=== PATIENT | female | born 1990 | race Caucasian/White ===

== ENCOUNTER 2018-07-21 15:00 | Inpatient (IN) | payer OTHER ==
[~2018-07-21] VITALS: Ht 167.6 cm; Wt 61.2 kg
[2018-07-21 15:12] VITALS: BP 102/61
[2018-07-21] MEDS ORDERED: NKM (15:15)
--- NOTE | 2018-07-21 15:35 | NUR ---
ED Nurse Note: presents from home with c/o rlq abd pain and decreased appetite. no n/v tolerates iv start and lab draw well
--- NOTE | 2018-07-21 15:44 | NUR ---
ED Nurse Note: Collected blood and urine then sent to lab.
[2018-07-21] MEDS ORDERED: Isovue-300 100ml vial INJ PRN (15:45)
[2018-07-21 15:53] LABS: APPEARANCE,URINE CLEAR; BILIRUBIN, URINE NEGATIVE (NEGATIVE); GLUCOSE, URINE (UA) NEGATIVE (NEGATIVE); KETONES,URINE 1+ (NEGATIVE); LEUKOCYTE ESTERASE ,URINE 1+ (NEGATIVE); NITRITE,URINE NEGATIVE (NEGATIVE); PH,URINE 6.5 (4.5-8.0); PROTEIN,URINE NEGATIVE (NEGATIVE); UROBILINOGEN,URINE NORMAL MG/DL (0.0-1.0)
[2018-07-21 15:54] LABS: COLOR,URINE YELLOW
[2018-07-21 15:56] LABS: BASOPHILS % (AUTO) 0.4 % (0.0-2.0); EOSINOPHILS % (AUTO) 2.4 % (0.0-3.0); HEMATOCRIT 35.5 % (37.0-47.0); LYMPHOCYTES % (AUTO) 12.5 % (20.0-45.0); MEAN CORPUSCULAR VOLUME 91 FL (80-99); MONOCYTES % (AUTO) 7.7 % (1.0-10.0); PLATELET COUNT 286 K/UL (150-450); RED BLOOD COUNT 3.88 M/UL (4.20-5.40); RED CELL DISTRIBUTION WIDTH 11.5 % (11.6-14.8); WHITE BLOOD COUNT 13.9 K/UL (4.8-10.8)
[2018-07-21 16:11] LABS: ANION GAP 10 mmol/L (5-15); BLOOD UREA NITROGEN 10 mg/dL (7-18); CALCIUM 9.1 MG/DL (8.5-10.1); CARBON DIOXIDE 27 MMOL/L (21-32); CHLORIDE 103 MMOL/L (98-107); CREATININE 0.8 MG/DL (0.55-1.30); POTASSIUM 3.8 MMOL/L (3.5-5.1); SODIUM 139 MMOL/L (136-145)
[2018-07-21 16:16] LABS: ALANINE AMINOTRANSFERASE 27 U/L (12-78); ALKALINE PHOSPHATASE 52 U/L (46-116); ASPARTATE AMINO TRANSFERASE 16 U/L (15-37); BILIRUBIN,TOTAL 0.6 MG/DL (0.2-1.0)
[2018-07-21 17:00] VITALS: BP 110/72
--- NOTE | 2018-07-21 17:01 | NUR ---
ED Nurse Note: Called CT for ff up with procedure.
--- NOTE | 2018-07-21 17:41 | NUR ---
ED Nurse Note: Pt taken to CT via gurney and consent signed.
--- NOTE | 2018-07-21 17:55 | NUR ---
ED Nurse Note: PT CAME BACK FROM CT AND STABLE.
--- NOTE | 2018-07-21 18:08 | Diagnostic Imaging Report ---
Indication: Abdominal pain Technique: Continuous helical transaxial imaging of the abdomen and pelvis was obtained from the lung bases to the pubic symphysis during intravenous contrast administration. Coronal 2-D reformats were also obtained. Study obtained in a Siemens sensation [address] Automatic Exposure Control was utilized. Total Dose length Product (DLP): 666.[address] Dose Index Volume (CTDIvol): 12.77 mGy Comparison: None Findings: Mild basilar atelectasis demonstrated. The liver and spleen, pancreas, gallbladder, kidneys and adrenal glands are unremarkable. Bowel gas pattern is nonobstructive. There is a 14 mm thick blind-ending structure consistent with an inflamed enlarged appendix, midline in location within the lower abdomen and pelvis (59-60, series 3). The cecum is mobile and deviated toward the midline of the abdomen. Findings consistent with acute appendicitis. There is no abscess. Small amount of free fluid noted within the cul-de-sac. There is a 4 cm left ovarian cyst. Uterus is noted. Bladder is unremarkable. IMPRESSION: Acute appendicitis. No abscess identified. Note: The position of the appendix is somewhat unusual. The cecum is elongated and mobile and is deviated toward the mid section of the lower abdomen. As such, the appendix is midline just above the bladder dome. The CT scanner at [facility] is accredited by the [employer] and the scans are performed using dose optimization techniques as appropriate to a performed exam including Automatic Exposure control.
--- NOTE | 2018-07-21 18:44 | NUR ---
ED Nurse Note: PT/PTT AND TYPING/SCREENING SPECIMEN SENT.
[2018-07-21 18:46] VITALS: BP 115/77
--- NOTE | 2018-07-21 18:47 | NUR ---
ED Nurse Note: PT IS AWARE OF HOSPITAL ADMISSION.
--- NOTE | 2018-07-21 19:11 | NUR ---
HAND-OFF: Report given to nolan REILLY.
--- NOTE | 2018-07-21 19:12 | NUR ---
ED Nurse Note: report received from MELBA Mayer. Pt to be admitted for appendicitis. Pt A/Ox4, significant other at bedside. Pt showing no signs of acute distress. VSS.
[2018-07-21] MEDS ORDERED: Piperacillin/Tazobactam 3.375 GM in NS 110 ML IVPB ONE (19:15)
[2018-07-21] MEDS ORDERED: Morphine Sulfate 2mg/ml Inj(IV/IM USE ONLY) IVP PRN ×4 (19:30→22:00)
--- NOTE | 2018-07-21 20:29 | NUR ---
ED Nurse Note: Dr. Casanova @ bedside assessing pt.
--- NOTE | 2018-07-21 20:54 | NUR ---
ED Nurse Note: Pt transferred to Med/Chas floor, report given to MELBA Agudelo. Pt transferred to floor by engraving supervisor. All belongings taken with pt along with belongings list. IV site patent and asymptomatic, VSS. Pt showing no signs of acute distress.
[2018-07-21] MEDS ORDERED: D5NS 1,000 ML IV SCH (21:00)
--- NOTE | 2018-07-21 21:01 | Emergency Room Report ---
History of Present Illness General Chief Complaint: Abdominal Pain Source: Patient Present Illness HPI 28-year-old female presents ED for evaluation. Complaining of abdominal pain since yesterday. Pain is dull, 8 out of 10, localized to right lower quadrant, nonradiating. Notes poor appetite and nausea. Denies fevers. Denies diarrhea. Denies sick contacts or recent travel. No other aggravating relieving factors. Denies any other associated symptoms Allergies: Coded Allergies: No Known Allergies (Unverified , 07/21/18) Patient History Past Medical History: none Past Surgical History: none Pertinent Family History: none Social History: Denies: smoking, alcohol use, drug use Last Menstrual Period: 06/14/18 Now: No Immunizations: UTD Reviewed Nursing Documentation: PMH: Agreed; PSxH: Agreed Nursing Documentation-PMH Past Medical History: No Stated History Review of Systems All Other Systems: negative except mentioned in HPI Physical Exam Vital Signs Date Time Temp Pulse Resp B/P (MAP) Pulse Ox O2 Delivery O2 Flow Rate FiO2 07/21/18 15:12 98.8 16 102/61 98 Room Air 07/21/18 15:12 86 Sp02 EP Interpretation: reviewed, normal General Appearance: no apparent distress, alert, GCS 15, non-toxic Head: normocephalic, atraumatic Eyes: bilateral eye normal inspection, bilateral eye PERRL ENT: hearing grossly normal, normal pharynx, no angioedema, normal voice Neck: full range of motion, supple/symm/no masses Respiratory: chest non-tender, lungs clear, normal breath sounds, speaking full sentences Cardiovascular #1: regular rate, rhythm, no edema Cardiovascular #2: 2+ carotid (R), 2+ carotid (L), 2+ radial (R), 2+ radial (L) , 2+ dorsalis pedis (R), 2+ dorsalis pedis (L) Gastrointestinal: normal bowel sounds, soft, non-distended, no guarding, no rebound, tenderness - RLQ Rectal: deferred Genitourinary: normal inspection, no CVA tenderness Musculoskeletal: back normal, gait/station normal, normal range of motion, non- tender Neurologic: alert, oriented x3, responsive, motor strength/tone normal, sensory intact, speech normal Psychiatric: judgement/insight normal, memory normal, mood/affect normal, no suicidal/homicidal ideation Reflexes: 3+ bicep (R), 3+ bicep (L), 3+ tricep (R), 3+ tricep (L), 3+ knee (R) , 3+ knee (L) Skin: normal color, no rash, warm/dry, well hydrated Lymphatic: no adenopathy Medical Decision Making Diagnostic Impression: Primary Impression: Appendicitis Qualified Codes: K35.80 - Unspecified acute appendicitis ER Course Hospital Course 28-year-old F presents to ED with RLQ pain with anorexia Differential diagnoses include: Appendicitis, cholecystitis, small bowel obstruction Clinical course Patient placed on stretcher. monitor and storage bin tender. After initial history and physical I ordered labs, IV fluids, UA, and CT scan Labs - leukocytosis noted, Hb/Hct stable. electrolytes ok. UA unremarkable CT abdomen and pelvis - appendicits without abscess or rupture Antibiotics given. Dr Casanova at bedside; he agrees to assessment and will take patient to OR in the morning patient will be admitted to Dr Diaz I feel this is a highly complex case requiring extensive working including EKG/ Rhythm strip, Xray/CT/US, Blood/urine lab work, repeat exams while in ED, and administration of strong opiates/narcotics for pain control, admission to hospital or close patient follow up. Diagnosis - appendicitis Patient admitted in serious condition Labs Test 07/21/18 15:20 07/21/18 15:35 07/21/18 18:39 Urine Color Yellow Urine Appearance Clear Urine pH 6.5 (4.5-8.0) Urine Specific [place] 1.010 (1.005-1.035) Urine Protein Negative (NEGATIVE) Urine Glucose (UA) Negative (NEGATIVE) Urine Ketones 1+ (NEGATIVE) Urine Blood 3+ (NEGATIVE) Urine Nitrite Negative (NEGATIVE) Urine Bilirubin Negative (NEGATIVE) Urine Urobilinogen Normal MG/DL (0.0-1.0) Urine Leukocyte Esterase 1+ (NEGATIVE) Urine RBC 5-10 /HPF (0 - 2) Urine WBC 2-4 /HPF (0 - 2) Urine Squamous Epithelial Cells Few /LPF (NONE/OCC) Urine Amorphous Sediment Few /LPF (NONE) Urine Bacteria Few /HPF (NONE) Urine HCG, Qualitative Negative (NEGATIVE) White Blood Count 13.9 K/UL (4.8-10.8) Red Blood Count 3.88 M/UL (4.20-5.40) Hemoglobin 12.0 G/DL (12.0-16.0) Hematocrit 35.5 % (37.0-47.0) Mean Corpuscular Volume 91 FL (80-99) Mean Corpuscular Hemoglobin 31.0 PG (27.0-31.0) Mean Corpuscular Hemoglobin Concent 33.9 G/DL (32.0-36.0) Red Cell Distribution Width 11.5 % (11.6-14.8) Platelet Count 286 K/UL (150-450) Mean Platelet Volume 7.2 FL (6.5-10.1) Neutrophils (%) (Auto) 77.0 % (45.0-75.0) Lymphocytes (%) (Auto) 12.5 % (20.0-45.0) Monocytes (%) (Auto) 7.7 % (1.0-10.0) Eosinophils (%) (Auto) 2.4 % (0.0-3.0) Basophils (%) (Auto) 0.4 % (0.0-2.0) Sodium Level 139 MMOL/L (136-145) Potassium Level 3.8 MMOL/L (3.5-5.1) Chloride Level 103 MMOL/L (98-107) Carbon Dioxide Level 27 MMOL/L (21-32) Anion Gap 10 mmol/L (5-15) Blood Urea Nitrogen 10 mg/dL (7-18) Creatinine 0.8 MG/DL (0.55-1.30) Estimat Glomerular Filtration Rate > 60 mL/min (>60) Glucose Level 111 MG/DL (74-106) Calcium Level 9.1 MG/DL (8.5-10.1) Total Bilirubin 0.6 MG/DL (0.2-1.0) Aspartate Amino Transf (AST/SGOT) 16 U/L (15-37) Alanine Aminotransferase (ALT/SGPT) 27 U/L (12-78) Alkaline Phosphatase 52 U/L (46-116) Total Protein 7.9 G/DL (6.4-8.2) Albumin 4.0 G/DL (3.4-5.0) Globulin 3.9 g/dL Albumin/Globulin Ratio 1.0 (1.0-2.7) Lipase 160 U/L (73-393) Prothrombin Time 10.8 SEC (9.30-11.50) Prothromb Time International Ratio 1.0 (0.9-1.1) Activated Partial Thromboplast Time 31 SEC (23-33) CT/MRI/US Diagnostic Results CT/MRI/US Diagnostic Results : Imaging Test Ordered: CT A/P Impression appendicitis. no abscess or free air Last Vital Signs Date Time Temp Pulse Resp B/P (MAP) Pulse Ox O2 Delivery O2 Flow Rate FiO2 07/21/18 18:46 98.7 69 16 115/77 99 Room Air Status: improved Disposition: ADMITTED INPATIENT Condition: Serious Referrals: NOT CHOSEN IPA/,REFERRING (PCP) Rico Collazo MD July 21, 2018 21:01
--- NOTE | 2018-07-21 21:24 | Pre-Procedure Note/Attestation ---
Pre-Procedure Note/Attestation Complete Prior to Procedure Procedure Narrative: laparoscopic appendectomy possible open Indications for Procedure Pre-Operative Diagnosis: acute appendicitis Attestation I attest that I discussed the nature of the procedure; its benefits; risks and complications; and alternatives (and the risks and benefits of such alternatives ), prior to the procedure, with the patient (or the patient's legal sales representative metals). I attest that, if there was a reasonable possibility of needing a blood transfusion, the patient (or the patient's legal sales representative metals) was given the [facility] standardized written summary, pursuant to the Alirio Syd Blood Safety Act ([place] Health and Safety Code # 1645, as amended). I attest that I re-evaluated the patient just prior to the surgery and that there has been no change in the patient's H&P, except as documented below: Hunter Casanova July 21, 2018 21:24
--- NOTE | 2018-07-21 21:27 | Consultation ---
History of Present Illness General Date patient seen: July 21, 2018 Reason for Hospitalization: Abdominal Pain Present Illness HPI This is a very pleasant 28 year old female otherwise healthy who presented with acute abdominal pain starting yesterday. States pain cramping 6-8/10 lower abdominal pain that is now radiating to the RLQ. no n/v. subjective fevers. normal BM. decreased appetite. In ED noted to have leukocytosis and CT scan consistent with acute appendicitis. surgery called to evaluate. patient seen, chart reviewed, patient examined. Allergies: Coded Allergies: No Known Allergies (Unverified , 07/21/18) Medication History Scheduled No Known Medications* (NKM - No Known Medications*), 0 ., (Reported) Patient History History Provided By: Patient, Medical Record Healthcare decision maker Resuscitation status Advanced Directive on File Past Medical/Surgical History Past Medical/Surgical History: (1) Appendicitis Review of Systems Review of Symptoms General ROS: no weight loss or fever Psychological ROS: no depression or mood changes, no memory loss Ophthalmic ROS: no visual changes or eye irritation ENT ROS: no nasal congestion, hearing loss, dizziness Allergy and Immunology ROS: no allergic symptoms or urticaria Hematological and Lymphatic ROS: no swollen glands, unusual bleeding or bruising Endocrine ROS: no polyuria, polydipsia, weight changes, temperature intolerance Respiratory ROS: no cough, shortness of breath, or wheezing Cardiovascular ROS: no chest pain or dyspnea on exertion Gastrointestinal ROS: abdominal pain, no bright red blood in stool. Musculoskeletal ROS: no myalgias or arthralgias Neurological ROS: no TIA or stroke symptoms Dermatological ROS: no new or changing skin lesions, rashes or pruritis Physical Exam Physical Exam General appearance: alert, cooperative, no distress, appears stated age Head: Normocephalic, without obvious abnormality, atraumatic Eyes: conjunctivae/corneas clear. PERRL, EOM's intact. Fundi benign Throat: Lips, mucosa, and tongue normal. Teeth and gums normal Neck: supple, symmetrical, trachea midline, no adenopathy, thyroid: not enlarged, symmetric, no tenderness/mass/nodules, no carotid bruit and no JVD Lungs: clear to auscultation bilaterally Heart: regular rate and rhythm, S1, S2 normal, no murmur, click, rub or gallop Abdomen: soft, RLQ tender with rebound . Bowel sounds normal. No masses, no organomegaly Extremities: extremities normal, atraumatic, no cyanosis or edema Pulses: 2+ and symmetric Skin: Skin color, texture, turgor normal. No rashes or lesions Neurologic: Grossly normal Last 24 Hour Vital Signs Date Time Temp Pulse Resp B/P (MAP) Pulse Ox O2 Delivery O2 Flow Rate FiO2 07/21/18 20:54 98.6 76 16 121/61 99 Room Air 07/21/18 18:46 98.7 69 16 115/77 99 Room Air 07/21/18 17:00 98.5 77 19 110/72 97 Room Air 07/21/18 15:31 86 16 Room Air 07/21/18 15:12 98.8 86 16 98 Room Air 07/21/18 15:12 98.8 16 102/61 98 Room Air Laboratory Tests Test 07/21/18 15:20 07/21/18 15:35 07/21/18 18:39 Urine Color Yellow Urine Appearance Clear Urine pH 6.5 (4.5-8.0) Urine Specific [place] 1.010 (1.005-1.035) Urine Protein Negative (NEGATIVE) Urine Glucose (UA) Negative (NEGATIVE) Urine Ketones 1+ (NEGATIVE) H Urine Blood 3+ (NEGATIVE) H Urine Nitrite Negative (NEGATIVE) Urine Bilirubin Negative (NEGATIVE) Urine Urobilinogen Normal MG/DL (0.0-1.0) Urine Leukocyte Esterase 1+ (NEGATIVE) H Urine RBC 5-10 /HPF (0 - 2) H Urine WBC 2-4 /HPF (0 - 2) Urine Squamous Epithelial Cells Few /LPF (NONE/OCC) Urine Amorphous Sediment Few /LPF (NONE) H Urine Bacteria Few /HPF (NONE) Urine HCG, Qualitative Negative (NEGATIVE) White Blood Count 13.9 K/UL (4.8-10.8) H Red Blood Count 3.88 M/UL (4.20-5.40) L Hemoglobin 12.0 G/DL (12.0-16.0) Hematocrit 35.5 % (37.0-47.0) L Mean Corpuscular Volume 91 FL (80-99) Mean Corpuscular Hemoglobin 31.0 PG (27.0-31.0) Mean Corpuscular Hemoglobin Concent 33.9 G/DL (32.0-36.0) Red Cell Distribution Width 11.5 % (11.6-14.8) L Platelet Count 286 K/UL (150-450) Mean Platelet Volume 7.2 FL (6.5-10.1) Neutrophils (%) (Auto) 77.0 % (45.0-75.0) H Lymphocytes (%) (Auto) 12.5 % (20.0-45.0) L Monocytes (%) (Auto) 7.7 % (1.0-10.0) Eosinophils (%) (Auto) 2.4 % (0.0-3.0) Basophils (%) (Auto) 0.4 % (0.0-2.0) Sodium Level 139 MMOL/L (136-145) Potassium Level 3.8 MMOL/L (3.5-5.1) Chloride Level 103 MMOL/L (98-107) Carbon Dioxide Level 27 MMOL/L (21-32) Anion Gap 10 mmol/L (5-15) Blood Urea Nitrogen 10 mg/dL (7-18) Creatinine 0.8 MG/DL (0.55-1.30) Estimat Glomerular Filtration Rate > 60 mL/min (>60) Glucose Level 111 MG/DL (74-106) H Calcium Level 9.1 MG/DL (8.5-10.1) Total Bilirubin 0.6 MG/DL (0.2-1.0) Aspartate Amino Transf (AST/SGOT) 16 U/L (15-37) Alanine Aminotransferase (ALT/SGPT) 27 U/L (12-78) Alkaline Phosphatase 52 U/L (46-116) Total Protein 7.9 G/DL (6.4-8.2) Albumin 4.0 G/DL (3.4-5.0) Globulin 3.9 g/dL Albumin/Globulin Ratio 1.0 (1.0-2.7) Lipase 160 U/L (73-393) Prothrombin Time 10.8 SEC (9.30-11.50) Prothromb Time International Ratio 1.0 (0.9-1.1) Activated Partial Thromboplast Time 31 SEC (23-33) Height (Feet): 5 Height (Inches): 6.00 Weight (Pounds): 135 Medications Current Medications Medications (Trade) Dose Ordered Sig/Baljinder Route PRN Reason Start Time Stop Time Status Last Admin Dose Admin Acetaminophen (Tylenol) 650 mg Q4H PRN ORAL Mild Pain (Pain Scale 1-3) 07/21/18 19:30 08/20/18 19:29 Barium Sulfate (Readi-Cat 2) 450 ml NOW PRN ORAL Radiology Procedure 07/21/18 15:45 07/23/18 15:31 Dextrose (Dextrose 50%) 25 ml Q30M PRN IV Hypoglycemia 07/21/18 19:30 08/20/18 19:29 Dextrose (Dextrose 50%) 50 ml Q30M PRN IV Hypoglycemia 07/21/18 19:30 08/20/18 19:29 Dextrose/Sodium Chloride 1,000 ml @ 50 mls/hr Q20H IV 07/21/18 21:00 08/20/18 20:59 Iopamidol (Isovue-300 100ml) 100 ml NOW PRN INJ Radiology Procedure 07/21/18 15:45 Morphine Sulfate (Morphine Sulfate) 1 mg Q4H PRN IVP For Pain 07/21/18 19:30 07/28/18 19:29 Ondansetron HCl (Zofran) 4 mg Q6H PRN IVP Nausea & Vomiting 07/21/18 19:30 08/20/18 19:29 Piperacillin Sod/ Tazobactam Sod 3.375 gm/Sodium Chloride 110 ml @ 27.5 mls/hr EVERY 8 HOURS IVPB 07/22/18 06:00 07/29/18 05:59 Assessment/Plan Problem List: (1) Appendicitis Assessment & Plan: 28 year old female with acute appendicitis. febrile, HD stable, leukocytosis 13k. CT consistent with acute uncomplicated appendicitis. NPO p MN IV fluids IV Abx Consent To OR in AM for lap vs open appendectomy thank you ICD Codes: K37 - Unspecified appendicitis SNOMED: [id number] Qualifiers: Qualified Codes: K35.80 - Unspecified acute appendicitis Hunter Casanova July 21, 2018 21:27
[2018-07-21] MEDS: D5NS 1,000 ML IV SCH (21:29)
--- NOTE | 2018-07-21 21:53 | NUR ---
NURSE NOTES: Received patient from ER, via gurney, significant other is by bedside,patient is alert, oriented, able to make her needs known, ambulatory with steady gate. NPO post midnight due to laparoscopic appendectomy. Call light within reach, bed is in lowest position, locked and alarm is on. Will continue to monitor for safety and comfort.
[2018-07-21] MEDS ORDERED: Morphine Sulfate 4mg/ml Inj (IV USE ONLY) IVP PRN (22:00)
[2018-07-21] MEDS ORDERED: Milk of Magnesia 30ml Ud ORAL PRN (22:00)
[2018-07-21] MEDS ORDERED: Zolpidem 5mg tab ORAL PRN (22:00)
[2018-07-21] MEDS ORDERED: LORazepam 1mg tab ORAL PRN (22:00)
[2018-07-22] VITALS (11 sets, daily range): BP systolic 97–106; BP diastolic 46–58
[2018-07-22] MEDS ORDERED: Piperacillin/Tazobactam 3.375 GM in NS 110 ML IVPB SCH ×2
[2018-07-22] MEDS: Zoysn 3.37gm in NS 100ML IVPB SCH ×2 (05:47→13:32)
[2018-07-22 06:24] LABS: BASOPHILS % (AUTO) 0.4 % (0.0-2.0); EOSINOPHILS % (AUTO) 4.6 % (0.0-3.0); HEMATOCRIT 30.5 % (37.0-47.0); HEMOGLOBIN 10.2 G/DL (12.0-16.0); LYMPHOCYTES % (AUTO) 22.1 % (20.0-45.0); MEAN CORPUSCULAR VOLUME 92 FL (80-99); NEUTROPHILS % (AUTO) 64.9 % (45.0-75.0); PLATELET COUNT 239 K/UL (150-450); RED BLOOD COUNT 3.32 M/UL (4.20-5.40); RED CELL DISTRIBUTION WIDTH 11.5 % (11.6-14.8); WHITE BLOOD COUNT 9.6 K/UL (4.8-10.8)
[2018-07-22 06:37] LABS: ANION GAP 9 mmol/L (5-15); CALCIUM 8.6 MG/DL (8.5-10.1); CARBON DIOXIDE 26 MMOL/L (21-32); CHLORIDE 105 MMOL/L (98-107); CREATININE 0.7 MG/DL (0.55-1.30); POTASSIUM 4.2 MMOL/L (3.5-5.1); SODIUM 140 MMOL/L (136-145)
[2018-07-22 06:45] LABS: BLOOD UREA NITROGEN 9 mg/dL (7-18)
--- NOTE | 2018-07-22 07:20 | NUR ---
HAND-OFF: Report given to Brianna REILLY.
[2018-07-22] MEDS: D5NS 1,000 ML IV SCH (07:25)
--- NOTE | 2018-07-22 07:32 | NUR ---
NURSE NOTES: AWAKE/ALERT. NO C/O PAIN. NPO MAINTANINED FOR SURGERY. IN NO DISTRESS.
--- NOTE | 2018-07-22 08:00 | History and Physical Report ---
DATE OF ADMISSION: 07/21/2018 REASON FOR ADMISSION: 1. Abdominal pain. 2. Acute appendicitis. HISTORY OF PRESENT ILLNESS: The patient is a pleasant 28-year-old female who presented to the emergency room for further evaluation and care of abdominal pain. No acute nausea, vomiting, or diarrhea. When imaging of her abdomen and pelvis demonstrated acute appendicitis with no abscess. The patient is in no overt acute distress and General Surgery has been consulted for further evaluation and care. ALLERGIES: No known allergies. PAST MEDICAL HISTORY: Pharyngeal abscess with incision and drainage. PAST SURGICAL HISTORY: Pharyngeal abscess with incision and drainage. FAMILY HISTORY: Noncontributory. REVIEW OF SYSTEMS: Neurologic: The patient denies headache, change in vision, syncope, or presyncopal episodes. Cardiovascular: No current chest pain or palpitations. Pulmonary: No difficulty breathing, cough, sputum. Gastrointestinal/Genitourinary: The patient was having abdominal pain with no acute nausea, vomiting, or diarrhea. Endocrinology: No night sweats, fevers, or chills. Musculoskeletal: The patient feeling weak, tired, and fatigue. LABORATORIES: Dated July 21, 2018, white cell count 13.9, hemoglobin 12, and platelet count 286,000. Sodium 139, potassium 3.8, creatinine 0.8. PT/INR 10.81 respectively. PHYSICAL EXAMINATION: VITAL SIGNS: Blood pressure 115/77, respiratory rate 16, pulse 69, temperature 98.7. GENERAL: The patient awake, alert, not in distress. HEENT: Extraocular muscles intact. No lymphadenopathy noted. CARDIOVASCULAR: S1, S2. No rubs or gallops. PULMONARY: Clear to auscultation bilaterally. No rales, rhonchi, or wheezes. ABDOMINAL: Soft and nontender. EXTREMITIES: No edema. ASSESSMENT AND PLAN: 1. Abdominal pain secondary to acute appendicitis. Please refer to #2. 2. Acute appendicitis. At this time, the patient will be initiated on Zosyn 3.375 g every 6 hours intravenously. She will also be placed on the clear liquid diet and NPO. General surgeon consulted for appendectomy in the morning. 3. DVT prophylaxis with SCDs. 4. Dehydration. At this time, we will continue D5 normal saline with hydration over the next 24 hours. Hair Diaz MD DR: Ashley JOB#: [id number] CC:
[2018-07-22] MEDS ORDERED: Bupivacaine w/Epi 0.25% 30ml Vial INJ ONE (08:54)
[2018-07-22] MEDS ORDERED: fentaNYL 100 mcg/2 mL IV ONE (08:57)
[2018-07-22] MEDS ORDERED: Midazolam 2mg/2ml Inj ONE (08:57)
[2018-07-22] MEDS ORDERED: Propofol 200mg/20ml IV ONE (08:58)
[2018-07-22] MEDS ORDERED: Lidocaine 1% MPF 10mg/ml 5ml ONE (08:58)
[2018-07-22] MEDS ORDERED: Ketorolac 30mg Inj ONE (08:58)
[2018-07-22] MEDS ORDERED: Zemuron 50mg/5ml Inj IV ONE (09:05)
[2018-07-22] MEDS ORDERED: cefOXitin 1gm Inj ONE (09:05)
[2018-07-22] MEDS ORDERED: Succinylcholine 20mg/ml 10ml vial ONE (09:05)
--- NOTE | 2018-07-22 09:06 | NUR ---
NURSE NOTES: NPO MAINTAINED FOR SURGERY. TO OR VIA BED.
[2018-07-22] MEDS ORDERED: LR 1000ml ONE (09:12)
[2018-07-22] MEDS ORDERED: NS Irrig 1000ml ONE (09:12)
[2018-07-22] MEDS ORDERED: Sterile Water Irrig 1000ml IRRIG ONE (09:12)
[2018-07-22] MEDS ORDERED: Glycopyrrolate 0.2mg/ml 1ml Vial ONE (09:12)
[2018-07-22] MEDS ORDERED: TransDerm Scop 1mg/72HR Patch TDERMAL ONE (09:19)
[2018-07-22] MEDS ORDERED: LR 1000ml 1,000 ML IVLG SCH (09:57)
--- NOTE | 2018-07-22 09:57 | Anethesia Preoperative Eval ---
Anesthesia Pre-op PMH/ROS General Date of Evaluation: July 22, 2018 Time of Evaluation: 09:05 Anesthesiologist: Abbie ASA Score: ASA 1 Mallampati Score Class I : Soft palate, uvula, fauces, pillars visible Class II: Soft palate, uvula, fauces visible Class III: Soft palate, base of uvula visible Class IV: Only hard plate visible Mallampati Classification: Class II Surgeon: Sherry Diagnosis: Acute appendicitis Surgical Procedure: Lp appendectomy Anesthesia History: none Family History: no anesthesia problems Allergies: Coded Allergies: No Known Allergies (Unverified , 07/21/18) Medications: see eMAR Patient NPO?: Yes NPO Date: July 21, 2018 NPO Time: 0000 Past Medical History Cardiovascular: Denies: HTN, CAD, [place], valve dz, arrhythmia, other Pulmonary: Denies: asthma, COPD, [place], other Gastrointestinal/Genitourinary: Denies: GERD, CRI, ESRD, other Neurologic/Psychiatric: Denies: dementia, CVA, depression/anxiety, TIA, other Endocrine: Denies: DM, hypothyroidism, steroids, other HEENT: Denies: cataract (L), cataract (R), glaucoma, [place] (L), [place] (R), other Hematology/Immune: Denies: anemia, DVT, bleeding disorder, other Musculoskeletal/Integumentary: Denies: OA, RA, DJD, DDD, edema, other PMH Narrative: acutely ill admitted with abdominal pain. PSxH Narrative: Oral Sx Anesthesia Pre-op Phys. Exam Physician Exam Last Vital Signs Date Time Temp Pulse Resp B/P (MAP) Pulse Ox O2 Delivery O2 Flow Rate FiO2 07/22/18 08:00 98.3 62 18 100/52 (68) 100 07/22/18 08:00 Room Air Constitutional: NAD Neurologic: CN 2-12 intact Cardiovascular: RRR, no M/R/G Respiratory: CTA Gastrointestinal: other - some tenderness Airway Exam Mallampati Score: Class I MO: full Neck: flexible ROM: full Teeth: intact Dentures: no upper, no lower Anesthesia Pre-op A/P Labs Hematology Test 07/21/18 15:35 07/22/18 05:10 White Blood Count 13.9 K/UL (4.8-10.8) H 9.6 K/UL (4.8-10.8) Red Blood Count 3.88 M/UL (4.20-5.40) L 3.32 M/UL (4.20-5.40) L Hemoglobin 12.0 G/DL (12.0-16.0) 10.2 G/DL (12.0-16.0) L Hematocrit 35.5 % (37.0-47.0) L 30.5 % (37.0-47.0) L Mean Corpuscular Volume 91 FL (80-99) 92 FL (80-99) Mean Corpuscular Hemoglobin 31.0 PG (27.0-31.0) 30.8 PG (27.0-31.0) Mean Corpuscular Hemoglobin Concent 33.9 G/DL (32.0-36.0) 33.5 G/DL (32.0-36.0) Red Cell Distribution Width 11.5 % (11.6-14.8) L 11.5 % (11.6-14.8) L Platelet Count 286 K/UL (150-450) 239 K/UL (150-450) Mean Platelet Volume 7.2 FL (6.5-10.1) 7.5 FL (6.5-10.1) Neutrophils (%) (Auto) 77.0 % (45.0-75.0) H 64.9 % (45.0-75.0) Lymphocytes (%) (Auto) 12.5 % (20.0-45.0) L 22.1 % (20.0-45.0) Monocytes (%) (Auto) 7.7 % (1.0-10.0) 8.0 % (1.0-10.0) Eosinophils (%) (Auto) 2.4 % (0.0-3.0) 4.6 % (0.0-3.0) H Basophils (%) (Auto) 0.4 % (0.0-2.0) 0.4 % (0.0-2.0) Coagulation Test 07/21/18 18:39 Prothrombin Time 10.8 SEC (9.30-11.50) Prothromb Time International Ratio 1.0 (0.9-1.1) Activated Partial Thromboplast Time 31 SEC (23-33) Chemistry Test 07/21/18 15:35 07/22/18 05:10 Sodium Level 139 MMOL/L (136-145) 140 MMOL/L (136-145) Potassium Level 3.8 MMOL/L (3.5-5.1) 4.2 MMOL/L (3.5-5.1) Chloride Level 103 MMOL/L (98-107) 105 MMOL/L (98-107) Carbon Dioxide Level 27 MMOL/L (21-32) 26 MMOL/L (21-32) Anion Gap 10 mmol/L (5-15) 9 mmol/L (5-15) Blood Urea Nitrogen 10 mg/dL (7-18) 9 mg/dL (7-18) Creatinine 0.8 MG/DL (0.55-1.30) 0.7 MG/DL (0.55-1.30) Estimat Glomerular Filtration Rate > 60 mL/min (>60) > 60 mL/min (>60) Glucose Level 111 MG/DL (74-106) H 102 MG/DL (74-106) Calcium Level 9.1 MG/DL (8.5-10.1) 8.6 MG/DL (8.5-10.1) Total Bilirubin 0.6 MG/DL (0.2-1.0) Aspartate Amino Transf (AST/SGOT) 16 U/L (15-37) Alanine Aminotransferase (ALT/SGPT) 27 U/L (12-78) Alkaline Phosphatase 52 U/L (46-116) Total Protein 7.9 G/DL (6.4-8.2) Albumin 4.0 G/DL (3.4-5.0) Globulin 3.9 g/dL Albumin/Globulin Ratio 1.0 (1.0-2.7) Lipase 160 U/L (73-393) Urine Test Test 07/21/18 15:20 Urine HCG, Qualitative Negative (NEGATIVE) Risk Assessment & Plan Assessment: ASA 1E Plan: GA with ETT ponv prevention Status Change Before Surgery: No Pre-Antibiotics Drug: Cefoxitin 1gr. Given Within 1 Hr of Incision: Yes Time Given: 09:28 Junior Leiva MD July 22, 2018 09:57
[2018-07-22] MEDS ORDERED: Metoclopramide 10mg/2ml Inj IVP PRN (10:00)
[2018-07-22] MEDS ORDERED: DiphenhydrAMINE 50mg/ml Inj IVP PRN (10:00)
[2018-07-22] MEDS ORDERED: Meperidine 50mg/ml Inj(FOR RIGORS ONLY) IV PRN (10:00)
[2018-07-22] MEDS ORDERED: Ketorolac 30mg Inj IV PRN (10:00)
--- NOTE | 2018-07-22 10:25 | Brief Operative Note ---
Immediate Post Operative Note Operative Note Pre-op Diagnosis: acute appendicitis Procedure: lap appy Post-op Diagnosis: same as pre-op Surgeon: esme Anesthesiologist: marian Anesthesia: general, local Specimen: yes Complications: none Condition: stable Fluids: see records Estimated Blood Loss: minimal Drains: none Implant(s) used?: No Hunter Casanova July 22, 2018 10:25
--- NOTE | 2018-07-22 10:26 | Immediate Post-Op Evaluation ---
Immediate Post-Op Evalulation Immediate Post-Op Evalulation Procedure: Laparoscopic appendectomy Date of Evaluation: July 22, 2018 Time of Evaluation: 10:25 IV Fluids: 800 Blood Products: none Estimated Blood Loss: min Urinary Output: none Blood Pressure Systolic: 102 Blood Pressure Diastolic: 56 Pulse Rate: 67 Respiratory Rate: 20 O2 Sat by Pulse Oximetry: 99 Temperature (Fahrenheit): 97.8 Pain Score (1-10): 1 Nausea: No Vomiting: No Complications none Patient Status: reacts, patent, extubated, none Hydration Status: adequate Junior Leiva MD July 22, 2018 10:26
[2018-07-22] MEDS ORDERED: NORCO 5-325 TA1 EACH ORAL (11:05)
[2018-07-22] MEDS ORDERED: COLACE100 MG ORAL (11:06)
--- NOTE | 2018-07-22 11:15 | NUR ---
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
--- NOTE | 2018-07-22 11:29 | NUR ---
NURSE NOTES: rec'd from pacu sp lap appendectomy. awake/alert. iv infusing. with 3 abd. lap sites. dressing dry and intact. v/s taken pain scale 3/10. in no acute distress.
[2018-07-22] MEDS ORDERED: Morphine Sulfate 2mg/ml Inj(IV/IM USE ONLY) IVP PRN (11:45)
[2018-07-22] MEDS ORDERED: HYDROcodone/Acetamin 5/325 tab ORAL PRN (12:00)
[2018-07-22] MEDS ORDERED: HYDROcodone/Acetamin 10/325 tab ORAL PRN (12:00)
--- NOTE | 2018-07-22 14:27 | NUR ---
*-* NO INSURANCE INFORMATION IN THE BAR TO SEND CLINICALS OR REVIEWS *-*
--- NOTE | 2018-07-22 14:33 | Nephrology Progress Note ---
Assessment/Plan Assessment/Plan: A/P 1) Appendicitis- recieved abx - s/p appendectomy - medications Rx per gen surgery - will DC today Subjective Date patient seen: July 22, 2018 Time patient seen: 14:32 ROS Limited/Unobtainable: No Allergies: Coded Allergies: No Known Allergies (Unverified , 07/21/18) All Systems: reviewed and negative except above Subjective Patient had appy. In no distress Objective Last 24 Hour Vital Signs Date Time Temp Pulse Resp B/P (MAP) Pulse Ox O2 Delivery O2 Flow Rate FiO2 07/22/18 13:30 98.5 59 18 104/52 (69) 97 07/22/18 11:30 98.4 58 19 97/55 (69) 97 07/22/18 11:07 97.2 60 15 102/58 69 Nasal Cannula 3 07/22/18 10:45 61 18 105/55 69 Nasal Cannula 3 07/22/18 10:35 59 16 103/50 74 Nasal Cannula 3 07/22/18 10:30 60 15 102/46 74 Nasal Cannula 3 07/22/18 10:26 67 20 99 07/22/18 10:24 97.3 74 18 101/53 74 Nasal Cannula 3 07/22/18 08:00 98.3 62 18 100/52 (68) 100 07/22/18 08:00 Room Air 07/22/18 04:00 98.2 50 18 99/50 (66) 07/22/18 00:00 98.2 63 20 106/53 (70) 07/21/18 21:53 Room Air 07/21/18 20:54 98.6 76 16 121/61 99 Room Air 07/21/18 18:46 98.7 69 16 115/77 99 Room Air 07/21/18 17:00 98.5 77 19 110/72 97 Room Air 07/21/18 15:31 86 16 Room Air 07/21/18 15:12 98.8 86 16 98 Room Air 07/21/18 15:12 98.8 16 102/61 98 Room Air Intake and Output 07/21/18 07/22/18 19:00 07:00 Intake Total 500 ml 710 ml Balance 500 ml 710 ml Intake Oral 0 ml IV Total 500 ml 710 ml # Voids 1 Laboratory Tests 07/21/18 15:20: Urine Color Yellow, Urine Appearance Clear, Urine pH 6.5, Urine Specific Duson 1.010, Urine Protein Negative, Urine Glucose (UA) Negative, Urine Ketones 1+H, Urine Blood 3+H, Urine Nitrite Negative, Urine Bilirubin Negative, Urine Urobilinogen Normal, Urine Leukocyte Esterase 1+H, Urine RBC 5-10H, Urine WBC 2-4, Urine Squamous Epithelial Cells Few, Urine Amorphous Sediment FewH, Urine Bacteria Few, Urine HCG, Qualitative Negative 07/21/18 15:35: White Blood Count 13.9H, Red Blood Count 3.88L, Hemoglobin 12.0, Hematocrit 35.5L, Mean Corpuscular Volume 91, Mean Corpuscular Hemoglobin 31.0, Mean Corpuscular Hemoglobin Concent 33.9, Red Cell Distribution Width 11.5L, Platelet Count 286, Mean Platelet Volume 7.2, Neutrophils (%) (Auto) 77.0H, Lymphocytes (%) (Auto) 12.5L, Monocytes (%) (Auto) 7.7, Eosinophils (%) (Auto) 2.4, Basophils (%) (Auto) 0.4, Sodium Level 139, Potassium Level 3.8, Chloride Level 103, Carbon Dioxide Level 27, Anion Gap 10, Blood Urea Nitrogen 10, Creatinine 0.8, Estimat Glomerular Filtration Rate > 60, Glucose Level 111H, Calcium Level 9.1, Total Bilirubin 0.6, Aspartate Amino Transf (AST/SGOT) 16, Alanine Aminotransferase (ALT/SGPT) 27, Alkaline Phosphatase 52, Total Protein 7.9, Albumin 4.0, Globulin 3.9, Albumin/Globulin Ratio 1.0, Lipase 160 07/21/18 18:39: Prothrombin Time 10.8, Prothromb Time International Ratio 1.0, Activated Partial Thromboplast Time 31 07/22/18 05:10: White Blood Count 9.6, Red Blood Count 3.32L, Hemoglobin 10.2L, Hematocrit 30.5L , Mean Corpuscular Volume 92, Mean Corpuscular Hemoglobin 30.8, Mean Corpuscular Hemoglobin Concent 33.5, Red Cell Distribution Width 11.5L, Platelet Count 239, Mean Platelet Volume 7.5, Neutrophils (%) (Auto) 64.9, Lymphocytes (%) (Auto) 22.1, Monocytes (%) (Auto) 8.0, Eosinophils (%) (Auto) 4.6H, Basophils (%) (Auto) 0.4, Sodium Level 140, Potassium Level 4.2, Chloride Level 105, Carbon Dioxide Level 26, Anion Gap 9, Blood Urea Nitrogen 9, Creatinine 0.7, Estimat Glomerular Filtration Rate > 60, Glucose Level 102, Calcium Level 8.6 Height (Feet): 5 Height (Inches): 6 Weight (Pounds): 135 General Appearance: no apparent distress EENT: normal ENT inspection Neck: non-tender, normal alignment Cardiovascular: normal rate, regular rhythm Respiratory/Chest: lungs clear, normal breath sounds Abdomen: non tender, soft Edema: no edema noted Arm (L), no edema noted Arm (R), no edema noted Leg (L), no edema noted Leg (R), no edema noted Pedal (L), no edema noted Pedal (R), no edema noted Generalized Hair Diaz MD July 22, 2018 14:33
--- NOTE | 2018-07-22 14:34 | Discharge Instructions ---
Discharge Instructions Discharge Instructions Services at Discharge: day care Diet: regular Resume Normal Activity?: No Activity: light activity Follow Up Orders Follow up with surgery 1 week For Congestive Heart Failure Reminder Report to your physician any weight gain of 5 pounds or more in one week. Hair Diaz MD July 22, 2018 14:34
--- NOTE | 2018-07-22 15:26 | NUR ---
*-* INSURANCE *-* ALL CLINICALS AND REVIEWS HAVE BEEN FAXED O: AETELIO RAMIREZ: MEKHI P:[phone] F: [phone] REF#
--- NOTE | 2018-07-22 15:30 | NUR ---
NURSE NOTES: DISCHARGED HOME ACCPD BY IN STABLE CONDITION. DC INSTRUCTIONS AND PRESCRIPTION MEDS GIVEN.
--- NOTE | 2018-07-23 00:30 | Operative Note - Dictated ---
DATE OF OPERATION: 07/22/2018 PREOPERATIVE DIAGNOSIS: Acute appendicitis. POSTOPERATIVE DIAGNOSIS: Acute appendicitis. OPERATION PERFORMED: Laparoscopic appendectomy. ATTENDING SURGEON: Hunter Casanova M.D. POT LINER: None. ANESTHESIOLOGIST: Junior Leiva M.D. ANESTHESIA: General DEMAND GENERATION MANAGER. ESTIMATED BLOOD LOSS: Minimal. IV FLUIDS: Please see anesthesia records. COMPLICATIONS: None. DRAINS: None. COUNTS: Sponge and needle count correct x2. WOUND CLASSIFICATION: Class III. ANTIBIOTICS: The patient is on scheduled IV Zosyn for acute active inflammatory process. INDICATIONS FOR PROCEDURE: This is a 28-year-old female, who presented to [facility] with worsening right lower quadrant abdominal pain in the patient with leukocytosis and a CT scan consistent with acute appendicitis. Surgery was indicated and recommended. Risks, benefits, and alternatives were discussed with the patient in detail, who expressed understanding and consented to surgery. OPERATIVE NOTE: The patient was taken to the operating room and placed on the operating table in supine position with left arm tucked. All bony prominences were well padded. SCDs placed. Josue catheter was not inserted given the patient voided prior to entering the operating room. General anesthesia was induced. The patient was intubated. The patient is already on scheduled IV antibiotics. The abdomen was clipped, prepped, and draped in standard surgical fashion. An umbilical incision was made and carried down through the fascia using #11 scalpel. Fascia was elevated and incised and entry into the abdomen was obtained using an open Sander technique. A 12 mm Sander trocar was inserted and the abdomen was insufflated to 12 to 15 mmHg. The patient tolerated the insufflation well. Laparoscope was inserted and the abdomen was inspected. The abdomen was otherwise satisfactory without any issues. In the right lower quadrant, there was omentum draped over the right lower quadrant with inflammatory changes. Secondary trocars were placed under direct visualization beginning with a 5 mm left lower quadrant port followed by a 5 mm suprapubic port. Laparoscopic graspers were used and the omentum draped over the right lower quadrant was slowly dissected off and the appendix was easily visualized without any perforation, but injected and dilated and consistent with acute appendicitis. The cecum was identified and the tenia fall to the confluence at which point the base of the appendix was identified. A window was made at the base of the appendix and a laparoscopic linear stapler was used and the base of the appendix was divided. Following this, the mesoappendix was divided in a similar fashion using the laparoscopic stapler. For appropriate hemostasis, laparoscopic clips were applied. Once this was complete, the pelvis was inspected as well as the right lower quadrant. Both staple lines from the base of the appendix and the mesoappendix were hemostatic with clips and viable and intact. There was no perforation, abscess, or other abnormalities of the abdomen noted. At this time, the appendix was placed in endoscopic retrieval bag and removed using the umbilical trocar site. Secondary trocars were removed under direct visualization followed by the umbilical trocar site. The umbilical trocar site fascia was reapproximated using [id number] #0 Vicryl suture. The remaining skin incisions were cleansed and reapproximated using 4-0 Monocryl subcuticular interrupted sutures. Skin glue and Steri-Strips were applied. Local anesthetic was infiltrated to all skin incision port sites throughout the procedure for patient's comfort. The patient tolerated the procedure well and was extubated and taken to postanesthetic care unit in stable condition. Hunter Casanova M.D. DR: DEVON JOB#: [id number] CC:
[2018-07-23 07:50] VITALS: BP 102/56
--- NOTE | 2018-07-23 07:50 | 48 Hour Post Anesthesia Eval ---
Post Anesthesia Evaluation Procedure: Laparoscopic appendectomy Date of Evaluation: July 22, 2018 Time of Evaluation: 16:20 Blood Pressure Systolic: 102 0: 56 Pulse Rate: 72 Respiratory Rate: 20 Temperature (Fahrenheit): 97.6 O2 Sat by Pulse Oximetry: 98 Airway: patent Nausea: No Vomiting: No Pain Intensity: 2 Hydration Status: adequate Cardiopulmonary Status: stable Mental Status/LOC: patient returned to baseline Follow-up Care/Observations: n/a Post-Anesthesia Complications: none Follow-up care needed: ready to discharge Junior Leiva MD July 23, 2018 07:50
--- NOTE | 2018-07-24 10:36 | Discharge Summary ---
Discharge Summary Discharge Summary _ DATE OF ADMISSION: 07/21/2018 DATE OF DISCHARGE: 07/22/2018 DISCHARGED BY: Dr.De Fletcher REASON FOR ADMISSION: 28 years old female with past medical history of pharyngeal abscess , status post incision and drainage , presented to emergency department for evaluation of cramping abdominal pain, 6-8 out of 10 intensity, radiating to right lower quadrant. Patient reported subjective fever. Patient reported decreased appetite. Patient denied nausea , vomiting, diarrhea. CT of the abdomen and pelvis revealed acute appendicitis. No abscess was identified. Laboratory work-up revealed initial leukocytosis with WBC 13.9, stable hemoglobin and hematocrit. Stable renal parameters , electrolytes and LFT. Surgeon seen patient in the emergency department. Patient subsequently admitted for surgical intervention. CONSULTANTS: surgery [facility] [place] [facility] COURSE: Patient admitted to medical surgical floor. Patient started on IV fluids and empiric antibiotics. Patient was kept n.p.o. after midnight. Patient subsequently undergone on 07/22/2018 laparoscopic appendectomy . Course of recovery was uneventful. Pathology of the appendix revealed acute appendicitis. Patient slowly started on liquid diet and was advanced as tolerated. Leukocytosis resolved. Pain management was addressed. Antiemetic were on board as needed. Bowel regimen instituted. Supportive care provided. Patient was able to tolerate diet, ambulated , voided , pain controlled. Laparoscopic incisions clean. Patient clinically stabilized and was ready for discharge home. Due to rapid and unexpected improvement in patient condition , patient was discharged in 1 day. FINAL DIAGNOSES: Acute appendicitis Status post laparoscopic appendectomy Dehydration DISCHARGE MEDICATIONS: See Medication Reconciliation list. DISCHARGE INSTRUCTIONS: Patient was discharged home . Follow up with primary care provider in one week. I have been assigned to dictate discharge summary for this account. I was not involved in the patient's management. Kathia Licona NP July 24, 2018 10:36
== END 2018-07-22 15:30 | disposition home or self-care (01) | DRG 343 ==
LOC: EMR 18:52 → 3E 19:04 → EDBEDREQ 19:54 → 3E 21:35
PROC: 0DTJ4ZZ Resection of Appendix, Percutaneous Endoscopic Approach (ICD-10-PCS; principal; 2018-07-22 09:30)
DX: K35.80 Unspecified acute appendicitis (principal); E86.0 Dehydration
CPT/HCPCS: 36415; 74177; 80048; 80053; 81003; 81025; 83690; 85025; 85610; 85730; 86850; 86900; 86901; 94003; 94150; 96365; 99285; J2250; J2405